=== PATIENT | female | born 1975 | race Caucasian/White ===

== ENCOUNTER 2019-12-25 14:22 | Outpatient (CLI) | payer OTHER, SELFPAY ==
[2019-12-26 02:33] LABS: SARS-CoV-2 RNA PCR Negative
== END 2019-12-25 14:23 | disposition home or self-care (01) ==
LOC: CHSLAB 14:23
PROVIDERS: PCP Nurse Practitioner Family; Visit Provider Nurse Practitioner Family
DX: R50.9 Fever, unspecified (principal); Z20.828 Contact with and (suspected) exposure to other viral communicable diseases
CPT/HCPCS: 87635; C9803; U0003

== ENCOUNTER 2020-02-19 10:38 | Emergency (ER) | payer OTHER, SELFPAY ==
[2020-02-19 10:59] VITALS: BP 156/73; PULSE 67; RESP 20; TEMP 37.2; O2SAT 99
--- NOTE | 2020-02-19 11:13 | ED.ABDPAIN ---
HPI - Abdominal Pain General Chief Complaint: Abdominal Pain Stated Complaint: has not had a bowel movement in 10 days Time Seen by Provider: 02/19/20 11:10 Source: patient Mode of arrival: ambulatory Limitations: no limitations History of Present Illness HPI narrative: Anitra comes in stating she has not been able to poop for several days. She has had some moderately significant discomfort from this. She has had no fever or chills. She has tried a fleet enema at home without much success. Related Data Home Medications Medication Instructions Recorded Confirmed clonazepam 1 mg PO BID 02/19/20 02/19/20 clonidine HCl 0.1 mg PO TID PRN 02/19/20 02/19/20 lamotrigine 100 mg PO HS 02/19/20 02/19/20 ondansetron HCl [Zofran] 4 mg PO BID PRN 02/19/20 02/19/20 trazodone 50 mg PO HS 02/19/20 02/19/20 Allergies Allergy/AdvReac Type Severity Reaction Status Date / Time No Known Allergies Allergy Mild Verified 07/23/19 09:54 Review of Systems Constitutional: Constitutional: Reports no additional constitutional complaints Eyes: Eyes: Reports no additional eye complaints ENT: Reports system reviewed and no additional complaints, except as documented Cardiovascular: Cardiovascular: Reports no additional cardiovascular complaints Respiratory: Respiratory: Reports no additional respiratory complaints Gastrointestinal: Gastrointestinal: Reports no additional gastrointestinal complaints Genitourinary: Genitourinary: Reports no additional female genitourinary complaints Musculoskeletal: Musculoskeletal: Reports no additional musculoskeletal complaints Integumentary/Breasts: Skin/Breast: Reports system reviewed and no additional complaints, except as docu Neurologic: Reports system reviewed and no additional complaints, except as documented Psychiatric: Psychiatric: Reports no additional psychiatric complaints Endocrine: Endocrine: Reports no additional endocrine complaints Hematologic/Lymphatic: Hematologic/Lymphatic: Reports no additional hematologic/lymphatic complaints Allergic/Immunologic: Allergic/Immunologic: Reports no additional allergic/immunologic complaints [facility] Past Medical History Medical History Bipolar disorder Generalized anxiety disorder HTN (hypertension) Schizophrenia Surgical History Surgical History H/O hemorrhoidectomy Status post endometrial ablation Family History Family History Mother No problems noted. Father No problems noted. Other Carcinoma of colon Cerebrovascular accident Diabetes mellitus Family history of irritable bowel syndrome Social History Social History Smoking status: Current every day smoker Tobacco type: e-cigarettes/vaping Alcohol intake: never Substance use: current Substance use type: marijuana Exam Const: General: no acute distress Nutritional Appearance: well nourished HENMT: Head: normal to inspection Mouth: Yes Normal oral and palatal mucosa present Eyes: Conjunctivae: conjunctivae normal Neck: Neck: normal visual inspection Chest: Chest palpation & inspection: normal inspection of the chest Resp: Effort & Inspection: normal respiratory effort Cardio: Rate: regular rate Rhythm: regular rhythm GI: GI Palp: Yes Soft to palpation Back/Spine/Pelvis: Back: no CVA tenderness Skin: General skin exam: normal color Neuro: General: patient oriented x3 and moves all extremities Speech: normal speech Extrem: General: normal to inspection Psych: Appearance: grossly normal Mental Status: mental status grossly normal Affect: normal affect Course Course Emergency Course: Discussion with patient was done regarding what she had tried for her constipation. And she has tried some things. I believe she would do well
== END 2020-02-19 11:25 | disposition home or self-care (01) ==
PROVIDERS: Emergency Provider Emergency Medicine; PCP Nurse Practitioner Family
DX: K59.09 Other constipation (principal)
CPT/HCPCS: 99281; 99282

== ENCOUNTER 2020-02-19 14:52 | Outpatient (CLI) | payer OTHER, SELFPAY ==
--- NOTE | ~2020-02-19 | XR_ITS ---
XR abdomen/kub 1V DATE: 02/19/2020 15:15 INDICATION: Constipation TECHNIQUE: AP view COMPARISON: None FINDINGS: There is a prominent of fecal material throughout most of the colon, consistent with clinic al history of constipation. No bowel obstruction is evident. The psoas shadows are intact. No viscero megaly is evident. There are multiple bilateral calcified pelvic phleboliths. Nonspecific approximately 6. Calcification overlying the right lower quadrant near expected position of the appendix. Appendicolith is not excluded. IMPRESSION: Prominent amount of fecal material within the colon, consistent with clinical history of constipation. No apparent bowel obstruction Cannot exclude completely calcified appendicolith Reviewed, dictated and finalized at [facility]. Reviewed, dictated and finalized at location [facility]. TER APPRENTICE IMPRESSION: Prominent amount of fecal material within the colon, consistent wit h clinical history of constipation. No apparent bowel obstruction Cannot exclude completely calcified appendicolith
== END 2020-02-19 14:53 | disposition home or self-care (01) ==
LOC: CHSIMG 14:54
PROVIDERS: PCP Nurse Practitioner Family; Visit Provider Family Medicine
DX: K59.00 Constipation, unspecified (principal)
CPT/HCPCS: 74018

== ENCOUNTER 2021-03-31 11:16 | Outpatient (CLI) | payer OTHER, SELFPAY ==
[2021-03-31 12:42] LABS: SARS-CoV-2 RNA PCR Negative (Negative)
== END 2021-03-31 11:17 | disposition home or self-care (01) ==
LOC: CHSLAB 11:18
PROVIDERS: PCP Nurse Practitioner Family; Visit Provider Nurse Practitioner Family
DX: Z20.822 Contact with and (suspected) exposure to COVID-19 (principal)
CPT/HCPCS: C9803; U0003; U0005

== ENCOUNTER 2023-07-06 07:02 | Emergency (ER) | payer OTHER, SELFPAY ==
[2023-07-06 07:05] VITALS: BP 175/102; PULSE 112; RESP 18; TEMP 36.2; O2SAT 99
--- NOTE | 2023-07-06 07:05 | ED.DENTAL ---
HPI - Dental/Oral General Chief complaint: Dental/Oral Stated complaint: R tooth pain Time Seen by Provider: 07/06/23 07:04 Source: patient Mode of arrival: ambulatory Limitations: no limitations History of Present Illness HPI Narrative: 47-year-old female with a history of hypertension, generalized anxiety disorder, bipolar disorder presents to the ER with a 3 day history of -- right lower jaw swelling dental pain. The patient is scheduled to see the dentist on 07/26/2023. No fever or chills. MD Complaint: tooth pain Location: Tooth # ( 27,28,29 a partially fractured and carious.) Onset (ago): day(s) ( Three days) Relieving factors: nothing Exacerbating factors: chewing, cold and heat Context: history of dental caries Treatment prior to arrival: none Related Data Home Medications Medication Instructions Recorded Confirmed prazosin 1 mg capsule 1 mg PO TID 07/29/20 07/06/23 olanzapine 7.5 mg tablet 7.5 mg PO HS 07/06/23 07/06/23 Allergies Allergy/AdvReac Type Severity Reaction Status Date / Time No Known Allergies Allergy Mild Verified 07/06/23 07:15 Review of Systems Review of Systems: All systems reviewed & are unremarkable except as noted in HPI and below Constitutional: Constitutional: Reports as per HPI and Reports no additional constitutional complaints Eyes: Eyes: Reports as per HPI and Reports no additional eye complaints ENT: Reports system reviewed and no additional complaints, except as documented and Reports as per HPI Comments: dental pain Cardiovascular: Cardiovascular: Reports as per HPI and Reports no additional cardiovascular complaints Respiratory: Respiratory: Reports as per HPI and Reports no additional respiratory complaints Gastrointestinal: Gastrointestinal: Reports as per HPI and Reports no additional gastrointestinal complaints Genitourinary: Genitourinary: Reports no additional female genitourinary complaints and Reports as per HPI Musculoskeletal: Musculoskeletal: Reports no additional musculoskeletal complaints and Reports as per HPI Integumentary/Breasts: Skin/Breast: Reports system reviewed and no additional complaints, except as docu and Reports as per HPI Neurologic: Reports system reviewed and no additional complaints, except as documented and Reports as per HPI Psychiatric: Psychiatric: Reports no additional psychiatric complaints and Reports as per HPI Endocrine: Endocrine: Reports no additional endocrine complaints and Reports as per HPI Hematologic/Lymphatic: Hematologic/Lymphatic: Reports no additional hematologic/lymphatic complaints and Reports as per HPI Allergic/Immunologic: Allergic/Immunologic: Reports no additional allergic/immunologic complaints and Reports as per HPI [facility] Past Medical History Medical History (Updated 07/06/23 @ 07:17 by Josh Vu MD) Bipolar disorder Generalized anxiety disorder HTN (hypertension) Schizophrenia Surgical History Surgical History H/O hemorrhoidectomy Status post endometrial ablation Family History Family History Mother No problems noted. Father No problems noted. Other Carcinoma of colon Cerebrovascular accident Diabetes mellitus Family history of irritable bowel syndrome Social History Social History Smoking status: Current every day smoker Tobacco type: e-cigarettes/vaping Alcohol intake: never Substance use: current Substance use type: marijuana Living arrangements: with family Exam Narrative: hypertension with a blood Pressure of 1705/102 and a heart rate of 112. HENMT: Head: normal to inspection Ears: external ears normal Face/Nose/Sinus: Normal external nose present Face and sinus: normal facial exam Mouth: Yes Normal oral and palatal mucosa present Teeth and gingiva: de
[2023-07-06 07:16] VITALS: BP 174/97; PULSE 90; RESP 18; O2SAT 99
[2023-07-06] MEDS: HYDROcodone/acetaminophen (*CRX) 5-325 MG TABLET 1 TAB PO (07:26)
[2023-07-06 07:46] VITALS: BP 150/90; PULSE 91; RESP 20; TEMP 36.7; O2SAT 98
== END 2023-07-06 07:46 | disposition home or self-care (01) ==
LOC: CHSED 07:25
PROVIDERS: Emergency Provider Internal Medicine Critical Care Medicine; PCP Nurse Practitioner Family
DX: K08.89 Other specified disorders of teeth and supporting structures (principal); K02.9 Dental caries, unspecified; I10 Essential (primary) hypertension; F41.1 Generalized anxiety disorder; F31.9 Bipolar disorder, unspecified; F17.290 Nicotine dependence, other tobacco product, uncomplicated; F12.90 Cannabis use, unspecified, uncomplicated
CPT/HCPCS: 99283; A9270

== ENCOUNTER 2024-04-24 09:48 | Outpatient (RCR) | payer OTHER, SELFPAY ==
--- NOTE | 2024-04-24 11:14 | PTOPEVAL1 ---
Assessment and note entered by Joel Hameed Evaluation Information Assessment Status Evaluation ICD-10 Condition Codes (PT) Cervicalgia M54.2,Radiculopathy, cervical M54.13 Onset 12/04/23 Subjective Information Pt. reports that she was walking outside and had a passing out episode and fell down her steps. She went to the hospital immediately and underwent x- ray and CT and was diagnosed with a concussion. She does not recall immediate neck pain and developed pain several days after the fall. She reports pain on the right side of the neck and pain radiates down the neck. No noticeable numbness and tingling noted. She notices difficulty with driving due to pain. She cannot turn her head. She states that sleep is difficult due to pain. She reports that she is able to complete her household activities, but is slower and painful. She reports that her goal is to reduce her neck pain. Reported Pain Level Pain Score 5: Self Report Assessment PT Clinical Summary Pt. is a 48 year old female who enters the clinic with neck pain following a fall. She presents with indications of whiplash mechanism type injury at the cervical spine. She presents with impaired ROM of the c-spine, impaired postural awareness, increased tissue tension and pain on this date. Continued skilled PT is indicated in order to improve these areas to allow the pt. to be able to participate in household duties with improved comfort and efficiency. Plan of Care Interventions Electrical Stimulation,Hot Pack/Cold Pack,Manual Therapy,Mechanical Traction,Neuro Re-education, Patient/Caregiver Education,Therapeutic Activities ,Therapeutic Exercise PT Services Indicated Yes Treatment Frequency and 2x/week x 12 visits Duration These treatments will address the objective and functional deficits as defined above. The patient will be advanced safely and appropriately in order for the patient to progress towards his/her prior level of function. Additional exercises will be introduced and as well as a comprehensive home exercise program upon discharge, if needed, ?to ensure carryover of functional gains achieved in the clinic. This treatment plan has been reviewed and agreement upon by the patient.
--- NOTE | 2024-04-24 11:15 | OPREHPOC ---
Outpatient Therapy Plan of Care This is a Multidisciplinary Plan of Care that may contain components documented by all disciplines (PT, OT, and ST.) PT Problem 1 PT Problem #1 Knowledge Deficit PT Goal 1 Goal / Goal Update Pt. will be independent with a HEP addressing strength and postural awareness Target Visit 2 PT Problem 2 PT Problem #2 Pain PT Goal 1 Goal / Goal Update Pt. will report reduction in pain levels to 2/10 at worst Pt. will reports being able to sleep throughout the night without pain disturbance. Target Visit 12 PT Problem 3 PT Problem #3 Impaired Range of Motion PT Goal 1 Goal / Goal Update Pt. will demonstrate 80 degrees bilateral c-spine rotation in order to improve visual field with driving. Target Visit 12 PT Problem 4 PT Problem #4 Impaired Functional Mobility PT Goal 1 Goal / Goal Update pt. will present with less than 20% limitation on the NDI indicating significant functional improvement. Target Visit 12
== END 2024-07-23 23:59 | disposition home or self-care (01) ==
LOC: CHSPT 09:48
PROVIDERS: Visit Provider Nurse Practitioner Family
DX: S16.1XXA Strain of muscle, fascia and tendon at neck level, initial encounter (principal); X58.XXXA Exposure to other specified factors, initial encounter
CPT/HCPCS: 97014; 97110; 97140; 97161; G0283

== ENCOUNTER 2024-06-10 10:31 | Emergency (ER) | payer OTHER, SELFPAY ==
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
--- NOTE | ~2024-06-10 | XR_ITS ---
Lumbosacral Spine: AP and lateral views Clinical History: Pain Findings: The normal lordotic curve is maintained. The vertebral bodies and posterior elements are i ntact. The intervertebral disc spaces are preserved. The sacroiliac joints are normally outlined. Impression: No significant abnormality. Reviewed, dictated and finalized at [facility]. Impression: No significant abnormality.
[2024-06-10 10:31] VITALS: BP 138/85; PULSE 82; RESP 14; TEMP 36.3; O2SAT 95
--- OUTSIDE RECORDS SUMMARY | 2024-06-10 10:37 | XMS_ITS | Encounter Summary ---
Author Organization [facility] Address [address] [place] [id number] Care Team Providers Care Learning Disabled Teacher Name Role Phone Jazlyn Best Primary Care Provider [phone] Encounter Details Date Type Department Care Team (Latest Contact Info) Description 02/07/2018 Abstract [facility] , Hadley Bolton MD Social History Tobacco Use Types Packs/Day Years Used Date Smoking Tobacco: Never Assessed Comments No Sex and Gender Information Value Date Recorded Sex Assigned at Not on file Legal Sex Female 4:36 PM CDT Gender Identity Not on file Sexual Orientation Not on file documented as of this encounter Plan of Treatment Not on file documented as of this encounter Visit Diagnoses Not on filedocumented in this encounter Care Teams Learning Disabled Teacher Relationship Specialty Start Date End Date Jazlyn Best FNP [address] [place] [address] PCP - General NURSE PRACTITIONER 01/10/24 documented as of this encounter
--- OUTSIDE RECORDS SUMMARY | 2024-06-10 10:38 | XMS_ITS | Data Portability ---
Author Organization [facility], [address] [place] [address] ([place]) Address [address] [place] [id number] Assessment Encounter Date Assessment Date Assessment LastModified by Organization Details LastModified Time 05/11/2024 05/11/2024 DISCUSSION: Procedure was explained in detail. Informed consent was obtained. The risks of procedure were discussed which include but are not limited to infection ranging from a superficial wound infection to an intraabdominal abscess, which can potentially lead to further surgical intervention; risk of bleeding potentially severe enough to require blood transfusion and further surgical intervention; damage to surrounding structures such as the common bile duct, stomach, duodenum, small bowel, and colon, all which potentially would lead to extensive surgical intervention. Additionally, we discussed the possible need for an open cholecystectomy with associated increased recovery time as well as hospitalization. Postoperative complications such as a bile leak were also discussed, as well as medical complications associated with anesthesia and surgery. Opportunity was given for questions and all questions were answered at this time. Patient acknowledged understanding the risks associated with the procedure and elected to proceed. PLAN: We will plan to schedule the patient for a laparoscopic cholecystectomy. She should complete her course of Augmentin prior to the procedure. She was instructed to contact the office with any worsening symptoms. [email or web address] Not available 05/11/2024 16:23:12 Plan of Treatment Reminders Order Date Submit Date Provider Last Modified By Organization Details Last Modified Time Details Appointments None record ed. Lab None record ed. Referral None record ed. Procedures None record ed. Surgeries None record ed. Imaging None record ed. Medication Orders None record ed. Patient TargetsNo targets recorded. Patient InstructionsNo instructions recorded. Reason for Referral None Reported. Problems Name Problem SNOMED Code Status Onset Date Resolution Date Notes Provider Name and Address Organization Details Recorded Time Acute cholecystitis 99278330 Active 2024 Amber Angulo, SEED EXPERT, [facility] [address] [place] [address], [phone], [facility] 5 15:10:01 Right upper quadrant pain 220093187 Active 2024 Amber Angulo APRN, [facility] [address] [place] [address], [phone], [facility] 5 15:10:10 Biliary calculus 932139261 Active 2024 Amber Angulo APRN, [facility] [address] [place] [address], [phone], [facility] 5 11:59:25 Problem Notes None recorded. Procedures Surgical History Date Name Laterality Status Provider Name and Address Organization Details Recorded Time 05/15/19 laparoscopic cholecystectomy completed Tato Barros [facility] 06/05/2024 15:25:21 Imaging Results None recorded. Procedure Notes None recorded. Medical Equipment None Reported. Medications Name Sig Start Date Stop Date Status Note LastModified by Organization Details LastModified Time lamotrigine 150 mg tablet TAKE 1 TABLET BY MOUTH TWICE A DAY active Not Available Not Available No t Available clindamycin HCl 300 mg capsule 300 MG ORALLY EVERY 8 HOURS 06/01 completed Not Available Not Available Not Available azithromyci n 250 mg tablet TAKE 2 TABLETS BY MOUTH TODAY, THEN TAKE 1 TABLET DAILY FOR 4 DAYS DIRECTED 06/01 completed Not Available Not Available Not Available prazosin 1 mg capsule TAKE 1 CAPSULE BY ORAL ROUTE EVERY MORNING AND BEDTIME active Not Available Not Available No t Available lisinopril 20 mg tablet TAKE 1 TABLET BY MOUTH EVERY DAY active Not Available Not Available No t Available olanzapine 5 mg tablet TAKE 1 TABLET BY MOUTH EVERYDAY AT BEDTIME active Not Available Not Available No t Available valacyclovi r 500 mg tablet TAKE 2 TABS BY MOUTH AT FIRST SIGN OF SORE. TAKE 1 TAB BY MOUTH DAILY AFTER UNTIL CLEAR. active Not Available Not Available No t Available olanzapine 7.5 mg tablet TAKE 1 TABLET BY MOUTH EVERYDAY AT BEDTIME active Not Available Not Available No t Available amoxicillin 500 mg tablet TAKE 1 TABLET BY MOUTH EVERY 8 HOURS 06/01 completed Not Available Not Available Not Available propranolol 10 mg tablet TAKE 1 TABLET BY MOUTH 3 TIMES EVERY DAY NEEDED FOR ANXIETY active Not Available Not Available No t Available lorazepam 0.5 mg tablet TAKE 1 TABLET BY MOUTH EVERY DAY NEEDED FOR ANXIETY active Not Available Not Available No t Available trazodone 100 mg tablet TAKE 2 TABLETS BY MOUTH EVERY DAY AT BEDTIME active Not Available Not Available No t Available hydrocodone 7.5 mg-acetamin ophen 325 mg tablet TAKE 1 TABLET BY MOUTH EVERY 6 HOURS NEEDED FOR PAIN active Not Available Not Available No t Available buspirone 30 mg tablet TAKE 1/2 TABLET BY ORAL ROUTE 2 TIMES EVERY DAY FOR 1 WEEK, THEN INCREASE TO 1 TABLET TWICE DAILY. active Not Available Not Available No t Available metoprolol tartrate 50 mg tablet TAKE 1 TABLET BY MOUTH EVERY DAY active Not Available Not Available No t Available diclofenac sodium 50 mg tablet,alexandre yed release TAKE 1 TABLET THREE TIMES A DAY NEEDED FOR PAIN BE SURE TO TAKE WITH FOOD. active Not Available Not Available No t Available lisinopril 40 mg tablet TAKE 1 TABLET BY MOUTH EVERY DAY active Not Available Not Available No t Available amoxicillin 875 mg-potassiu m clavulanate 125 mg tablet TAKE 1 TABLET BY MOUTH TWICE A DAY FOR 7 DAYS 06/01 completed Not Available Not Available Not Available quetiapine 50 mg tablet TAKE 1/2-1 TABLET BY ORAL ROUTE EVERY BEDTIME active Not Available Not Available No t Available Vitals Date Recorded Body weight Heart rate Oxygen saturation Oxygen saturation in Arterial blood by Pulse oximetry Systolic blood pressure Diastolic blood pressure Provider Name and Address Organization Details Last Updated DateTime 5 42153.7 5 g 76 /min 100 % 100 % 122 mm[Hg] 80 mm[Hg] [facility] 5 14:57:05 Date Recorded Body weight Heart rate Oxygen saturation Oxygen saturation in Arterial blood by Pulse oximetry Body temperature Systolic blood pressure Diastolic blood pressure Provider Name and Address Organization Details Last Updated DateTime 5 93911.0 9 g 71 /min 99 % 99 % 99.1 [degF] 130 mm[Hg] 82 mm[Hg] [facility] 5 11:51:07 Social History None recorded. Functional Status None recorded. Mental Status None recorded. Family History Nothing Reported. Medical History No medical history recorded. Gynecological HistoryNo gynecological history recorded. Obstetrics History GPAL:G 0 P 0 0 0 0 Past Encounters Encounter ID Performer Location Encounter Start Date Encounter Closed Date Diagnosis/Indication Diagnosis SNOMED-CT Code Diagnosis ICD10 Code Diagnosis Note [id number] Jarod Rahman MD [address] [facility] ([place]) [address] [place] [address] 05/11/2024 14:48:25 05/11/2024 16:19:04 Acute cholecystitis 01970997 K81.0 Right uppe r quadrant pain 167647363 R10.11 Health Concerns Section Related Observation LastModified by Organization Detai ls LastModified Time None Recorded Concern Status LastModified by Organization Details LastModified Time None Recorded Advance Directives Directive None Recorded Payers Encounter Date Sequence Insurance Name Policy Number Policy Davis Covered Member ID Davis Member ID Guarantor Name 05/11/2024 1 [facility] ON OR AFTER 10/02/20 (MEDICAID REPLACEMENT - HMO) Anitra Morley [id number] Anitra Morley Notes Date Note Type Note Provider Name and Address Organization Details Recorded Time 05/11/2024 text/html The patient is a 48-year-old female who presents today in follow-up from an emergency room visit on May 10 in which she underwent a CT scan that showed suggestions of very subtle inflammation adjacent to the gallbladder which could indicate very early findings of acute cholecystitis. Small pericardial effusion, scattered diverticula of the colon, and a technically indeterminate 1.8 cm right adrenal gland nodule. The patient reports that she has had intermittent right upper quadrant pain for some time now, but typically it resolves on its own. This episode it would not go away and she had associated vomiting. The patient reports that the pain is in the right upper quadrant and radiates into her right side. She denies any previous abdominal surgeries. She does vape, but states she does not use nicotine. Amber Angulo, ROBIN, [facility] [address] [place], [phone], [place] [facility] 05/15/2024 10:26:03 OBGyn Episode No OBEpisode recorded.
--- OUTSIDE RECORDS SUMMARY | 2024-06-10 10:38 | XMS_ITS | Patient Health Record ---
Author Organization [facility] Address [address] [place] [address] Care Team Providers Care Director Educational Radio Name Role Phone Vasyl Cameron Primary Care Provider [phone] Reason For Referral No Information Medications Medication SIG (Take, Route, Frequency, Duration) Notes Start Date End Date Status amLODIPine Besylate 5 MG 1 tablet Orally Once a day for 30 day(s) 09/07/2017 Active DULoxetine HCl 60 MG 1 capsule Orally On ce a day Active Folic Acid 1 MG 1 tablet Orally Once a day Not-Taking Multivitamin - Orally Not-T aking Gabapentin 600 MG 1 tablet Orally Once a day Not-Taking Gabapentin 300 MG 1 capsule Orally Onc e a day Not-Taking hydrOXYzine HCl 25 MG 1 tablet as needed Orally every 8 hrs Not-Taking Thiamine 50 MG 2 capsules Orally On ce a day Not-Taking Social History Tobacco Use: Social History Observation Description Date Details (start date - stop date) Current Smoker NA - NA Dont use, Tobacco Use/Smoking Question Answer Notes Are you a current smoker Alcohol Screen (Audit-C) Question Answer Notes Did you have a drink containing alcohol in the p ast year? No Points 0 Interpretation Negative PRAPARE Question Answer Notes Date Completed/Updated: 09/12/2017 What is your current housing situation? I have h ousing Are you worried about losing your housing? No What is the highest level of school that you have finished? More than high school What is your current work situation? Unemployed and seeking work In the past year, have you o r any family members you live with been unable to get any of the following when it was really needed? Check all that apply I do not have problems meeting my needs Has lack of transportation k ept you from medical appointments, meetings, work or from getting things needed for daily living? No How often do you see or talk to people that you care about and feel close to? (For example: talking to friends on the phone, visiting friends or family, going to advent or club meetings) More than 5 times a week How stressed are you? Stress is when someone feels tense, nervous, anxious, or can\t sleep at night because their mind is troubled Quite a bit In the past year have you sp ent more than 2 nights in a row in a mcc, half-way, residential center, or juvenile correctional facility? No Are you a refugee? No What country are you from? [place] Do you feel physically and e motionally safe where you currently live? Yes In the past year, have you b een afraid of your partner or ex-partner? No PRAPARE Score: 5 Section Notes: pt viviane Problems Problem Type SNOMED Code ICD Code Onset Dates Problem Status W/U Status Risk Notes Problem 00275606 Essential hypertension (I10) Active confirmed Problem Opioid dependence in remission (635861307) Opioid use disorder, moderate, in early remission (F11.21) Active confirmed Plan Of Treatment No Information Insurance Providers Payer Name Payer Address Payer Phone Subscriber Number Group Number Insured Name Patient Relationship to Insured Coverage Start Date Coverage End Date [facility] Att Claims Department [address] [place] [address] [id number] Anitra Dobbs i Self - patient is the insured 1 Medications Administered Medication Instructions Date of Administration Dosage Notes Vivitrol 09/12/2017 380 mg Exp Jan 2020 M anufact by Keisha pt olga reyes. Medical (General) History Medical History History ICD Code tachycardia hypertension chronic pain syndrome Substance abuse Surgical History Surgery Date(Month/Year) Ablation 2012 hemrroid removal
--- OUTSIDE RECORDS SUMMARY | 2024-06-10 10:38 | XMS_ITS | Clinical Summary ---
Author Organization [facility] Address [address] [place] [address] Care Team Providers Care Comparator Operator Name Role Phone Jazlyn Best FACILITY SPECIALIST Primary Care Provider [phone] Allergies No known active allergies Medications traZODone (DESYREL) 100 MG tablet Take 2 tablets (200 mg total) by mouth nightly at bedtime. Active Social History Tobacco Use Types Packs/Day Years Used Date Smoking Tobacco: Former Smokeless Tobacco: Never Alcohol Use Standard Drinks/Week Comments No 0 (1 standard drink = 0.6 oz pur e alcohol) Comments No Sex and Gender Information Value Date Recorded Sex Assigned at Not on file Legal Sex Female 4:36 PM CDT Gender Identity Not on file Sexual Orientation Not on file Last Filed Vital Signs Vital Sign Reading Time Taken Comments Blood Pressure 164/94 01/10/2024 4:14 PM CDT Pulse 60 01/10/2024 4:14 PM CDT Temperature 36.3 C (97.4 F) 01/10/2024 4:14 PM CDT Respiratory Rate 18 01/10/2024 4:14 PM CDT Oxygen Saturation 99% 01/10/2024 4:14 PM CDT Inhaled Oxygen Concentration - - Weight 58.5 kg (128 lb 15.5 oz) 024 12:35 PM CDT Height 160 cm (5' 3 ) 01/10/2024 12:35 PM CDT Body Mass Index 22.85 01/10/2024 12:35 PM CDT Plan of Treatment Health Maintenance Due Date Last Done Comments Cervical Cancer Screening Pa p Smear (Age 30 to 64) Every 3 Years 1974 Colorectal Cancer Screening Colonoscopy (10 Years) 1974 Annual Physical 1977 Hepatitis C 1992 DTaP, Tdap and Td Vaccines ( 1 - Tdap) 1993 Hepatitis B Vaccines (1 of 3 - 19+ 3-dose series) 1993 Cervical Cancer Screening Pa p with HPV Testing (Age 30 to 64) Every 5 Years 2004 Cervical Cancer Screening with HPV 2004 Mammogram Screening 2014 COVID-19 Vaccine (2023-2 5 season) 2023 Influenza Adult (#1) 2024 Meningococcal B Vaccine Aged Out No l onger eligible based on patient's age to complete this topic Meningococcal Vaccine Aged Out No ramu dylan eligible based on patient's age to complete this topic Pneumococcal Vaccine: Pediat rics (0 to 5 Years) and At-Risk Patients (6 to 64 Years) Aged Out No longer eligible b ased on patient's age to complete this topic RSV Immunizations Under 20 Months Aged Out No longer eligible based on patient's age to complete this topic [place] [address] [place] [id number] Care Teams Comparator Operator Relationship Specialty Start Date End Date Jazlyn Best FNP [address] [place] [address] PCP - General NURSE PRACTITIONER 01/10/24
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
[2024-06-10] MEDS: KETOROLAC 30 MG/ML VIAL (*BKC) IM (10:52)
[2024-06-10] MEDS: CYCLOBENZAPRINE HCL 10 MG TABLET PO (10:52)
--- OUTSIDE RECORDS SUMMARY | 2024-06-10 11:11 | XMS_ITS | Encounter Summary ---
Author Organization [facility] Address [address] [place] [address] Care Team Providers Care Garage Mechanic Name Role Phone Jazlyn Best Primary Care Provider [phone] Encounter Details Date Type Department Care Team (Latest Contact Info) Description 02/07/2018 Abstract [facility] , Hadley Bolton MD Social [...] on filedocumented in this encounter Care Teams Garage Mechanic Relationship Specialty Start Date End Date Jazlyn Best FNP [address] [place] [address] PCP - General NURSE PRACTITIONER 01/10/24 documented as of this encounter
--- OUTSIDE RECORDS SUMMARY | 2024-06-10 11:11 | XMS_ITS | Clinical Summary ---
Author Organization [facility] Address [address] [place] [address] Care Team Providers Care Cold Saw Operator Name Role Phone Jazlyn Best ELECTRICAL PANEL BUILDER Primary Care Provider [phone] Allergies No known active allergies Medications traZODone [...] patient's age to complete this topic [place] [address] [place] [id number] Care Teams Cold Saw Operator Relationship Specialty Start Date End Date Jazlyn Best FNP [address] [place] [address] PCP - General NURSE PRACTITIONER 01/10/24
== END 2024-06-10 11:27 | disposition home or self-care (01) ==
PROVIDERS: Emergency Provider Family Medicine; PCP Nurse Practitioner Family
DX: S13.4XXA Sprain of ligaments of cervical spine, initial encounter (principal); M54.50 Low back pain, unspecified; I10 Essential (primary) hypertension; F17.290 Nicotine dependence, other tobacco product, uncomplicated; V89.2XXA Person injured in unspecified motor-vehicle accident, traffic, initial encounter
CPT/HCPCS: 72100; 72125; 96372; 99284; A9270; J1885

== ENCOUNTER 2024-06-25 08:53 | Outpatient (RCR) | payer OTHER, SELFPAY ==
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
== END 2024-09-23 23:59 | disposition home or self-care (01) ==
LOC: CHSPT 08:53
PROVIDERS: PCP Nurse Practitioner Family; Visit Provider Nurse Practitioner Family
DX: S16.1XXA Strain of muscle, fascia and tendon at neck level, initial encounter (principal)
CPT/HCPCS: 97014; 97110; 97140; 97161; G0283